=== PATIENT | female | born 1990 | race Caucasian/White ===

== ENCOUNTER 2021-06-14 21:00 | Emergency (ER) | payer BC, OTHER ==
[~2021-06-14] VITALS: Ht 162.6 cm; Wt 55.8 kg
--- NOTE | 2021-06-14 22:26 | NUR ---
PT AAOX4. BIBSELF SLIPPED ON STAIRS. -KO. C/O R SHOULDER BLADE PAIN. PLACED IN BED 1 ON MONITOR AND PULSE OX. AWAITING ER MD FOR EVAL.
[2021-06-14] MEDS ORDERED: IBUPROFEN 400 MG TABLET PO ONE (22:30)
[2021-06-14] MEDS ORDERED: IBUPROFEN 400 MG TABLET ONE (22:40)
--- NOTE | 2021-06-14 22:43 | NUR ---
RAD AT BEDSIDE
[2021-06-14 23:09] VITALS: BP 111/72
--- NOTE | 2021-06-14 23:09 | NUR ---
Patient discharged to home in stable condition. Written and verbal after care instructions given. Patient verbalizes understanding of instruction. Pt ambulated out of ED. VSS.
== END 2021-06-14 23:10 | disposition home or self-care (01) ==
LOC: ER 21:11
DX: S40.011A Contusion of right shoulder, initial encounter (principal); E03.9 Hypothyroidism, unspecified; W01.0XXA Fall on same level from slipping, tripping and stumbling without subsequent striking against object, initial encounter; Y93.89 Activity, other specified; Y92.89 Other specified places as the place of occurrence of the external cause; Y99.8 Other external cause status
CPT/HCPCS: 73010-TC

== ENCOUNTER 2022-05-08 01:50 | Emergency (ER) | payer OTHER ==
[~2022-05-08] VITALS: Ht 154.9 cm; Wt 50.8 kg
--- NOTE | 2022-05-08 02:19 | NUR ---
BIBSELKerri C/O RIGHT SIDE FLANK PAIN X 1 WEEK. REPORTED PAINFUL URINATION SHE HAS BEEN TREATING WITH AZO AND IBUPROFEN. PT AWAKE AND ALERTX4 BREATHING UNLABORED REPORTS 10/10 PAIN TO R FLANK. DENIES N/V/D OR ABD PAIN. V/S WNL.
[2022-05-08] MEDS ORDERED: MORPHINE SULFATE INJ 4 MG/ML DISP.SYRIN ONE (02:21)
[2022-05-08] MEDS ORDERED: ONDANSETRON HCL/PF 4 MG/2 ML VIAL ONE (02:21)
--- NOTE | 2022-05-08 02:25 | NUR ---
20G IV ESTABLISHED AT [facility]. BLOOD COLLECTED AND SENT TO LAB
[2022-05-08 02:27] LABS: BASOPHILS % (AUTO) 0.3 % (0.0-2.0); EOSINOPHILS % (AUTO) 0.1 % (0.0-6.0); HEMATOCRIT 33 % (33-45); HEMOGLOBIN 10.6 g/dL (11.5-14.8); MEAN CORPUSCULAR HGB CONC 32 g/dl (31.0-36.0); MEAN CORPUSCULAR VOLUME 87 fL (82-100); MONOCYTES # (AUTO) 1.4 K/uL (0.1-1.30); NEUTROPHILS # (AUTO) 11.8 K/uL (1.8-8.9); NEUTROPHILS % (AUTO) 77.6 % (43.0-81.0); PLATELET COUNT (AUTO) 244 K/uL (150-450); RED BLOOD CELL COUNT(AUTO) 3.78 MIL/uL (4.0-5.2); WHITE BLOOD COUNT (AUTO) 15.2 K/uL (4.3-11.0)
[2022-05-08] MEDS ORDERED: ONDANSETRON HCL/PF 4 MG/2 ML VIAL IVP ONE (02:30)
[2022-05-08] MEDS ORDERED: MORPHINE SULFATE INJ 2 MG/ML DISP.SYRIN IV ONE (02:30)
[2022-05-08 02:36] LABS: CALCIUM, SERUM 8.5 mg/dL (8.5-10.1); CREATININE 1.1 mg/dL (0.6-1.3); POTASSIUM 3.7 mmol/L (3.5-5.1)
[2022-05-08 02:42] LABS: ALBUMIN 3.6 g/dL (3.4-5.0); BILIRUBIN,DIRECT 0.1 mg/dL (0.0-0.2); BILIRUBIN,TOTAL 0.7 mg/dL (0.2-1.0); TOTAL PROTEIN, SERUM 7.7 g/dL (6.4-8.2)
--- NOTE | 2022-05-08 02:48 | NUR ---
US TECH AT BEDSIDE
[2022-05-08 03:02] LABS: BILIRUBIN,URINE NEGATIVE (NEGATIVE); COLOR,URINE YELLOW (YELLOW); LEUKOCYTE ESTERASE ,URINE SMALL (NEGATIVE); NITRITE, URINE POSITIVE (NEGATIVE); PROTEIN,URINE 100 mg/dl (NEGATIVE); UGLUCOSE NEGATIVE (NEGATIVE); UROBILINOGEN,URINE 0.2 EU/dL (0.2)
[2022-05-08 03:13] LABS: BACTERIA,URINE MANY /HPF (None Seen); RBC,URINE 21-50 /HPF (0-2); SQUAMOUS EPITHELIAL CELL,UR Few /HPF (None Seen); WBC,URINE 51-80 /HPF (0-3)
[2022-05-08] MEDS ORDERED: CEFTRIAXONE 1 G VIAL ONE (03:29)
[2022-05-08] MEDS ORDERED: CEFTRIAXONE 1 G in IV D5W 50 ML IV ONE (03:30)
[2022-05-08] MEDS ORDERED: HYDR-3972 PO (03:57)
[2022-05-08] MEDS ORDERED: CEPH500C2 PO (03:57)
[2022-05-08 04:05] VITALS: BP 104/53
--- NOTE | 2022-05-08 04:05 | NUR ---
Patient discharged to home in stable condition. Written and verbal after care instructions given. Patient verbalizes understanding of instruction.IV removed. Catheter intact and site benign. Pressure and 4x4 applied to site. No bleeding noted.
== END 2022-05-08 04:06 | disposition home or self-care (01) ==
LOC: ER 01:55
DX: N12 Tubulo-interstitial nephritis, not specified as acute or chronic (principal); K82.8 Other specified diseases of gallbladder; R10.11 Right upper quadrant pain; E03.9 Hypothyroidism, unspecified
CPT/HCPCS: 99284; 96365; 76705; 96375; 85025; 80048; 87077; 87086; 83690; 80076; 84703; 87186; 81001; 36415; J2270; J0696; J2405; J7060; J7030